=== PATIENT | male | born 1935 | race Caucasian/White ===

== ENCOUNTER 2020-09-19 16:28 | Emergency (ER) | payer OTHER ==
[~2020-09-19] VITALS: Ht 177.8 cm; Wt 83.9 kg
[~2020-09-19 16:28] MED LIST: ATOR20TA PO; CLOP75TA15 PO; LOSA1TAB42 PO; PREG100C PO
--- NOTE | 2020-09-19 16:41 | NUR ---
BAILEY ([facility]) [phone]
--- NOTE | 2020-09-19 16:42 | NUR ---
NURYS FROM HOME TO ER BED 6. AAOX4. NOT IN RESP DISTRESS, BREATHING EVEN AND UNLABORED. AMBULATORY. BROUGHT IN FOR HEADACHE, EARACHE, CHEEK ACHE AND DIFFICULTY WALKING. PER PT, HE HAS BEEN HAVING THIS PROBLEMS SINCE HE GOT A CHIROPRACTIC ADJUSTMENT FOR HIS SHOULDER PAIN X 3 MONTH AGO. NO NEURO DEFICIT NOTED. MD WAS AT THE BEDSIDE FOR EVAL. ORDERS RECEIVED, NOTED AND CARRIED OUT.
[2020-09-19 16:57] LABS: EOSINOPHILS % (AUTO) 4.2 % (0.0-6.0); HEMATOCRIT 32 % (39-51); HEMOGLOBIN 10.3 g/dL (13.5-17.5); LYMPHOCYTES % (AUTO) 17.6 % (20.0-44.0); MEAN CORPUSCULAR HGB CONC 33 g/dl (31.0-36.0); MEAN CORPUSCULAR VOLUME 87 fL (80-96); MONOCYTES % (AUTO) 10.1 % (2.0-12.0); NEUTROPHILS % (AUTO) 67.1 % (43.0-81.0); PLATELET COUNT (AUTO) 303 /CMM (150-450); RED BLOOD CELL COUNT(AUTO) 3.65 MIL/uL (4.5-6.0); WHITE BLOOD COUNT (AUTO) 8.3 K/uL (4.3-11.0)
[2020-09-19 16:58] LABS: BASOPHILS # (AUTO) 0.1 /CMM (0.0-0.2); LYMPHOCYTES # (AUTO) 1.5 /CMM (0.8-4.8); MONOCYTES # (AUTO) 0.8 /CMM (0.1-1.30); NEUTROPHILS # (AUTO) 5.6 /CMM (1.8-8.9)
[2020-09-19 17:01] LABS: CALCIUM, SERUM 8.8 mg/dL (8.5-10.1); CARBON DIOXIDE 27 mmol/L (21-32); CHLORIDE 102 mmol/L (98-107); CREATININE 1.8 mg/dL (0.6-1.3); GLUCOSE 128 mg/dL (74-106); POTASSIUM 4.2 mmol/L (3.5-5.1); SODIUM SERUM 137 mmol/L (136-145); UREA NITROGEN, BLOOD 23 mg/dL (7-18)
--- NOTE | 2020-09-19 17:01 | NUR ---
URINE SENT TO LAB
--- NOTE | 2020-09-19 17:02 | NUR ---
PT TO CT ON [place]
[2020-09-19 17:03] LABS: BILIRUBIN,URINE Negative (NEGATIVE); COLOR,URINE YELLOW (YELLOW); LEUKOCYTE ESTERASE ,URINE Negative (NEGATIVE); NITRITE, URINE Negative (NEGATIVE); PH,URINE 5.5 (5.0-8.0); PROTEIN,URINE 30 mg/dl (NEGATIVE); UGLUCOSE Negative (NEGATIVE); UROBILINOGEN,URINE 0.2 EU/dL (0.2)
[2020-09-19 17:06] LABS: ALANINE AMINOTRANSFERASE 11 U/L (12-78); ALBUMIN 2.8 g/dL (3.4-5.0); ALKALINE PHOSPHATASE 125 U/L (46-116); ASPARTATE AMINOTRANSFERASE 11 U/L (15-37); BILIRUBIN,DIRECT 0.1 mg/dL (0.0-0.2); BILIRUBIN,TOTAL 0.3 mg/dL (0.2-1.0); TOTAL PROTEIN, SERUM 7.4 g/dL (6.4-8.2)
[2020-09-19 17:20] LABS: BACTERIA,URINE Moderate /HPF (None Seen); HYALINE CASTS, URINE Few /LPF (None Seen); SQUAMOUS EPITHELIAL CELL,UR Moderate /HPF (None Seen)
[2020-09-19 17:21] LABS: RBC,URINE 0-2 /HPF (0-2)
[2020-09-19] MEDS ORDERED: MECLIZINE HCL 25 MG TABLET ONE (17:24)
[2020-09-19] MEDS ORDERED: MECL-159 PO (17:25)
[2020-09-19] MEDS ORDERED: MECLIZINE HCL 12.5 MG TABLET PO ONE (17:30)
--- NOTE | 2020-09-19 17:40 | NUR ---
Patient discharged to home in stable condition. Written and verbal after care instructions given. Patient verbalizes understanding of instruction.IV removed. Catheter intact and site benign. Pressure and 4x4 applied to site. No bleeding noted. Pt ambulatory with a steady gait
[2020-09-19 17:41] VITALS: BP 148/73
== END 2020-09-19 17:41 | disposition home or self-care (01) ==
LOC: ER 16:47
DX: R53.1 Weakness (principal); R26.89 Other abnormalities of gait and mobility; R51.9 Headache, unspecified; I10 Essential (primary) hypertension; E11.9 Type 2 diabetes mellitus without complications; F10.10 Alcohol abuse, uncomplicated; Y90.9 Presence of alcohol in blood, level not specified; Z90.89 Acquired absence of other organs; Z98.890 Other specified postprocedural states; Z79.899 Other long term (current) drug therapy; Z60.2 Problems related to living alone
CPT/HCPCS: 36415; 70450; 71045; 80048; 80076; 81001; 84484; 85025; 87086; 99285; J8597

== ENCOUNTER 2020-11-07 19:38 | Emergency (ER) | payer MEDICARE, OTHER ==
[~2020-11-07] VITALS: Ht 185.4 cm; Wt 95.3 kg
[~2020-11-07 19:38] MED LIST changes: +MECL-159 PO
--- NOTE | 2020-11-07 19:50 | NUR ---
bib daughter due to lower abdominal pain with nausea since this morning constipation x 8 days, breathing even and unlabored, aa/o x1 on wheel chair, hook to monitor and spox will cont to monitor
--- NOTE | 2020-11-07 20:10 | NUR ---
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
--- NOTE | 2020-11-07 20:25 | NUR ---
MD Dr. Villagomez at bedside
[2020-11-07 20:45] LABS: BASOPHILS % (AUTO) 0.3 % (0.0-2.0); EOSINOPHILS % (AUTO) 0.8 % (0.0-6.0); HEMATOCRIT 29 % (39-51); HEMOGLOBIN 9.5 g/dL (13.5-17.5); LYMPHOCYTES # (AUTO) 1.2 /CMM (0.8-4.8); LYMPHOCYTES % (AUTO) 8.9 % (20.0-44.0); MEAN CORPUSCULAR HGB CONC 33 g/dl (31.0-36.0); MEAN CORPUSCULAR VOLUME 85 fL (80-96); MONOCYTES # (AUTO) 1.1 /CMM (0.1-1.30); MONOCYTES % (AUTO) 8.1 % (2.0-12.0); NEUTROPHILS # (AUTO) 10.7 /CMM (1.8-8.9); NEUTROPHILS % (AUTO) 81.9 % (43.0-81.0); PLATELET COUNT (AUTO) 376 /CMM (150-450); RED BLOOD CELL COUNT(AUTO) 3.44 MIL/uL (4.5-6.0); WHITE BLOOD COUNT (AUTO) 13.1 K/uL (4.3-11.0)
[2020-11-07 20:54] LABS: CALCIUM, SERUM 9.5 mg/dL (8.5-10.1); CARBON DIOXIDE 24 mmol/L (21-32); CHLORIDE 89 mmol/L (98-107); CREATININE 1.3 mg/dL (0.6-1.3); GLUCOSE 177 mg/dL (74-106); SODIUM SERUM 126 mmol/L (136-145); UREA NITROGEN, BLOOD 21 mg/dL (7-18)
--- NOTE | 2020-11-07 20:55 | NUR ---
ASHER SENT TO LAB
[2020-11-07 21:03] LABS: ALANINE AMINOTRANSFERASE 17 U/L (12-78); ALBUMIN 3.1 g/dL (3.4-5.0); ALKALINE PHOSPHATASE 115 U/L (46-116); ASPARTATE AMINOTRANSFERASE 14 U/L (15-37); BILIRUBIN,DIRECT 0.1 mg/dL (0.0-0.2); BILIRUBIN,TOTAL 0.4 mg/dL (0.2-1.0); TOTAL PROTEIN, SERUM 7.6 g/dL (6.4-8.2)
--- NOTE | 2020-11-07 21:16 | NUR ---
RADIOLOGIST BRING PT FOR CT SCAN
[2020-11-07] MEDS ORDERED: hydrALAZINE HCL IV 20 MG VIAL IV ONE (22:00)
[2020-11-07] MEDS ORDERED: hydrALAZINE HCL IV 20 MG VIAL ONE (22:05)
[2020-11-07] MEDS ORDERED: MORPHINE SULFATE INJ 2 MG/ML DISP.SYRIN ONE (22:52)
[2020-11-07] MEDS ORDERED: LORAZEPAM INJ 2 MG/ML VIAL IV ONE (23:00)
[2020-11-07] MEDS ORDERED: MORPHINE SULFATE INJ 2 MG/ML DISP.SYRIN IV ONE (23:00)
--- NOTE | 2020-11-07 23:06 | NUR ---
KIP GRIDER SPEAKING TO DR. AGUSTIN REGARDING PLAN OF CARE.
[2020-11-07] MEDS ORDERED: LORAZEPAM INJ 2 MG/ML VIAL ONE (23:18)
[2020-11-07] MEDS ORDERED: PIPERACILLIN /TAZOBACTAM 3.375 G VIAL IV ONE (23:24)
[2020-11-07] MEDS ORDERED: IV NS 0.9% 1,000 ML BAG IV ONE (23:30)
[2020-11-07] MEDS ORDERED: PIPERACILLIN /TAZOBACTAM 3.375 G in IV D5W 50 ML IV ONE (23:30)
[2020-11-07 23:41] LABS: BILIRUBIN,URINE NEGATIVE (NEGATIVE); COLOR,URINE YELLOW (YELLOW); LEUKOCYTE ESTERASE ,URINE NEGATIVE (NEGATIVE); NITRITE, URINE NEGATIVE (NEGATIVE); PROTEIN,URINE 30 mg/dl (NEGATIVE); UGLUCOSE NEGATIVE (NEGATIVE); UROBILINOGEN,URINE 0.2 EU/dL (0.2)
--- NOTE | 2020-11-08 | NUR ---
PT ACCEPTED TO [facility], ROOM 604-B. # FOR REPORT [phone]
--- NOTE | 2020-11-08 00:15 | NUR ---
[facility] ETA 90 MIN.
[2020-11-08 00:31] LABS: WBC,URINE 0-2 /HPF (0-3)
[2020-11-08 00:32] LABS: BACTERIA,URINE None seen /HPF (None Seen); SQUAMOUS EPITHELIAL CELL,UR Few /HPF (None Seen)
--- NOTE | 2020-11-08 00:55 | NUR ---
REPORT GIVEN TO PAMELA RAUSCH OF [facility]
--- NOTE | 2020-11-08 01:30 | NUR ---
EMT ARRIVED TO CLINICAL BUSINESS MANAGER PT AND BE TRANSFER TO [facility], V/S CHECKED AND RECORDED, SPO2 95% bp 146/85 HR 119, TEMP 98.5, PT IS AA/O X2 ON O2 2L VIA NC, PACKET GIVEN TO THE EMT, FAMILY MEMBERS AT BEDSIDE,DIAPER WAS CHANGE, SAFELY TRANSFER FROM BED TO [facility], ON ROUTE TO [facility]
[2020-11-08 01:46] VITALS: BP 146/85
== END 2020-11-08 01:50 | disposition short-term general hospital (02) ==
LOC: ER 19:45
DX: A41.9 Sepsis, unspecified organism (principal); R41.82 Altered mental status, unspecified; K56.41 Fecal impaction; S09.90XA Unspecified injury of head, initial encounter; W18.30XA Fall on same level, unspecified, initial encounter; Y92.012 Bathroom of single-family (private) house as the place of occurrence of the external cause; E87.1 Hypo-osmolality and hyponatremia; R94.31 Abnormal electrocardiogram [ECG] [EKG]; I10 Essential (primary) hypertension; Z20.822 Contact with and (suspected) exposure to COVID-19; R09.89 Other specified symptoms and signs involving the circulatory and respiratory systems; R73.03 Prediabetes; Z99.3 Dependence on wheelchair; R91.8 Other nonspecific abnormal finding of lung field
CPT/HCPCS: 36415; 70450; 71045; 72125; 74176; 80048; 80076; 81001; 83605 ×2; 83880; 84484; 85025; 85730; 87040 ×2; 87081; 87086; 87426; 93005; 96365; 96375; 99291; J0360; J2060; J2270; J2543; J7030; J7060; L0172; C9803